=== PATIENT | male | born 1985 | race Caucasian/White ===

== ENCOUNTER 2016-06-13 20:09 | Emergency (ER) | payer BC ==
[2016-06-13] MEDS ORDERED: Clindamycin HCl 150 MG Cap PO ONE (20:24)
--- NOTE | 2016-06-13 20:28 | EDM.PDOC ---
ED HPI GENERAL MEDICAL PROBLEM - General Stated Complaint: SORE THROAT Time Seen by Provider: 06/13/16 20:25 Source of Information: Reports: Patient - History of Present Illness INITIAL COMMENTS - FREE TEXT/NARRATIVE: HISTORY AND PHYSICAL: History of present illness: [] Patient has had persistent sore throat since mid, he has been on around amoxicillin for 10 days with resolution 3 days post antibiotic sore throat began again, he then was seen in walk-in clinic are [facility] for 10 days, he completed this course on Tuesday he now has sore throat began moderate erythema no exudates tonsils 3+. No hot potato voice no difficulty eating, no drooling No fever nausea vomiting chills sweats Review of systems: As per history of present illness and below otherwise all systems reviewed and negative. Past medical history: As per history of present illness and as reviewed below otherwise noncontributory. Surgical history: As per history of present illness and as reviewed below otherwise noncontributory. Social history: No reported history of drug or alcohol abuse. Family history: As per history of present illness and as reviewed below otherwise noncontributory. Physical exam: HEENT: Atraumatic, normocephalic, pupils reactive, negative for conjunctival pallor or scleral icterus, mucous membranes moist, throat clear, neck supple, nontender, trachea midline. Uttered erythema of oropharynx no exudates tonsils 3 + Lungs: Clear to auscultation, breath sounds equal bilaterally, chest nontender. Heart: S1S2, regular, negative for clicks, rubs, or JVD. Abdomen: Soft, nondistended, nontender. Negative for masses or hepatosplenomegaly. Negative for costovertebral tenderness. Pelvis: Stable nontender. Genitourinary: Deferred. Rectal: Deferred. Extremities: Atraumatic, negative for cords or calf pain. Neurovascular unremarkable. Neuro: Awake, alert, oriented. Cranial nerves II through XII unremarkable. Cerebellum unremarkable. Motor and sensory unremarkable throughout. Exam nonfocal. Diagnostics: [] Previously cultured strep through the walk-in clinic Therapeutics: [] S. in 150 mg by mouth now Cleocin 300 mg by mouth 3 times a day #30 no refill Followup with ENT if symptoms persist or worsen despite treatment Impression: [] Tonsillitis Definitive disposition and diagnosis as appropriate pending reevaluation and review of above. ED ROS GENERAL - Review of Systems Review Of Systems: ROS reveals no pertinent complaints other than HPI. ED EXAM, GENERAL - Physical Exam Exam: See Below Course - Orders/Labs/Meds Orders: Active Orders 24 hr Category Date Time Status Clindamycin HCl [Cleocin] Med 06/13/16 20:24 Once 150 mg PO ONETIME ONE Departure - Departure Time of Disposition: 20:27 Disposition: Home, Self-Care 01 Condition: good Clinical Impression: Acute pharyngitis Additional Instructions: Medication as prescribed Return if symptoms persist or worsen despite treatment Followup with ENT if there is not complete resolution of symptoms [facility] - [facility] [address] [place] [id number] The following information is given to patients seen in the emergency department who are being discharged to home. This information is to outline your options for follow-up care. We provide all patients seen in our emergency department with a follow-up referral. The need for follow-up, as well as the timing and circumstances, are variable depending upon the specifics of your emergency department visit. If you don't have a primary care physician on staff, we will provide you with a referral. We always advise you to contact your personal physician following an emergency department visit to inform them of the circumstance of the visit and for follow-up with them and/or the need for any referrals to a consulting specialist. The emergency department will also refer you to a specialist when appropriate. This referral assures that you have the opportunity for follow-up care with a specialist. All of these measure are taken in an effort to provide you with optimal care, which includes your follow-up. Under all circumstances we always encourage you to contact your private physician who remains a resource for coordinating your care. When calling for follow-up care, please make the office aware that this follow-up is from your recent emergency room visit. If for any reason you are refused follow-up, please contact the [facility] emergency department at and asked to speak to the emergency department charge nurse. - My Orders Last 24 Hours: My Active Orders 06/13/16 20:24 Clindamycin HCl [Cleocin] 150 mg PO ONETIME ONE - Assessment/Plan Last 24 Hours: My Active Orders 06/13/16 20:24 Clindamycin HCl [Cleocin] 150 mg PO ONETIME ONE
[2016-06-13 21:08] VITALS: BP 121/63
== END 2016-06-13 21:03 | disposition home or self-care (01) ==
LOC: MW.ED 20:09
DX: J02.9 Acute pharyngitis, unspecified (principal)
CPT/HCPCS: 99283; A9270

== ENCOUNTER → 2016-06-28 | Outpatient (CLI) | payer BC | END | disposition home or self-care (01) | LOC: MW.CHENT 13:47 | PROVIDERS: ATTEND Otolaryngology | DX: J02.9 Acute pharyngitis, unspecified (principal) | CPT/HCPCS: 36415; 86060 ==

== ENCOUNTER 2021-01-22 20:12 | Emergency (ER) | payer BC, OTHER ==
[2021-01-22 22:37] VITALS: BP 128/83; PULSE 67
--- NOTE | 2021-01-22 23:22 | EDM.PDOC ---
ED HPI GENERAL MEDICAL PROBLEM - General Chief Complaint: Lower Extremity Injury/Pain Stated Complaint: LEFT LEG INJURY ON THE JOB Time Seen by Provider: 01/22/21 23:09 Source of Information: Reports: Patient History Limitations: Reports: No Limitations - History of Present Illness INITIAL COMMENTS - FREE TEXT/NARRATIVE: HISTORY AND PHYSICAL: History of present illness: Patient is a 35-year-old male who presents emergency room today with concern of left knee injury that states he occurred on 09 January. Patient states that he was hit in the knee on the job site by a piece of equipment. Patient states that since then, his work has not allowed him to come and get the knee evaluated. Patient states that he has continued to have pain and discomfort of the left knee and still has some residual bruising. Patient states he has been able to walk on it but does walk with a limp. Patient denies any head injury or loss of consciousness or any other resuscitative symptoms. Patient denies fever, chills, chest pain, shortness of breath, or cough. Denies headache, neck stiff ness, change in vision, syncope, or near syncope. Denies nausea, vomiting, abdominal pain, diarrhea, constipation, or dysuria. Has not noted any blood in urine or stool. Patient has been eating and drinking appropriately. Review of systems: As per history of present illness and below otherwise all systems reviewed and negative. Past medical history: As per history of present illness and as reviewed below otherwise noncontributory. Surgical history: As per history of present illness and as reviewed below otherwise noncontributory. Social history: See social history for further information Family history: As per history of present illness and as reviewed below otherwise noncontribu tory. Physical exam: General: Patient is alert, oriented, and in no acute distress. Patient sitting comfortably on exam table. Vitals stable and reviewed by me HEENT: Atraumatic, normocephalic, pupils equal and reactive bilaterally, negative for conjunctival pallor or scleral icterus, neck supple, nontender, trachea midline. No drooling or trismus noted. No meningeal signs. No hot potato voice noted. Lungs: Clear to auscultation, breath sounds equal bilaterally, chest nontender. Heart: S1S2, regular rate and rhythm without overt murmur Abdomen: Soft, nondistended, nontender. Negative for masses or hepatosplenomegaly. Negative for costovertebral tenderness. Pelvis: Stable nontender. Genitourinary: Deferred. Rectal: Deferred. Skin: Intact, warm, dry. No lesions or rashes noted. Extremities: Patient does have some mild ecchymosis noted of the mid calf area of the LLE without swelling or erythema. Patient does have pain to palpation of the proximal tibial area without crepitus. Patient does have full range of motion of the complete left lower extremity but states that he does have pain with range of motion of his left knee. All compartments are soft of the left lower extremity. Dorsalis pedis and posterior tibial pulses are grossly intact to left lower extremity with capillary refill less than 2 seconds. Otherwise, atraumatic, negative for cords or calf pain. Neurovascular unremarkable. Neuro: Awake, alert, oriented. Cranial nerves II through XII unremarkable. Cerebellum unremarkable. Motor and sensory unremarkable throughout. Exam nonfocal. Notes: Signs and symptoms that would prompt return to the ED thoroughly discussed with patient. Discussed importance for follow-up with a primary care provider. Voices understanding and is agreeable to plan of care. Denies any further questions or concerns at this time. Diagnostics: Knee x-ray, left Therapeutics: None Prescription: None Impression: Left knee injury Plan: 1. Rest, ice, elevate the affected extremity. You can apply ice 15 minutes on, 15 minutes off. 2. Tylenol and/or Ibuprofen as directed for pain management or discomfort. 3. Follow up with the primary care provider as discussed. Return to the ED as needed and as discussed. Definitive disposition and diagnosis as appropriate pending reevaluation and review of above. - Related Data Allergies Allergy/AdvReac Type Severity Reaction Status Date / Time No Known Allergies Allergy Verified 01/22/21 22:13 Home Meds: Home Meds . [No Known Home Meds] 06/13/16 [History] Past Medical History - Past Health History Medical/Surgical History: Denies Medical/Surgical History Respiratory History: Reports: Other (See Below) Other Respiratory History: treated for Strep infection twice - Infectious Disease History Infectious Disease History: Reports: Chicken Pox Social & Family History - Family History Family Medical History: No Pertinent Family History - Tobacco Use Tobacco Use Status *Q: Never Tobacco User - Caffeine Use Caffeine Use: Reports: Coffee, Energy Drinks, Soda, Tea Caffeine Use Comment: 1cup of coffee/day; 2-3drinks of pop and/or energy drinks/day - Alcohol Use Days Per Week of Alcohol Use: 2 Number of Drinks Per Day: 2 Total Drinks Per Week: 4 - Recreational Drug Use Recreational Drug Use: No Review of Systems - Review of Systems Review Of Systems: Comprehensive ROS is negative, except as noted in HPI. ED EXAM, GENERAL - Physical Exam Exam: See Below (see dictation) Course - Vital Signs Last Recorded V/S: Last Vital Signs Temp 97.9 F 01/22/21 22:02 Pulse 67 01/22/21 22:34 Resp 17 01/22/21 22:34 BP 128/83 01/22/21 22:34 Pulse Ox 100 01/22/21 22:34 Departure - Departure Time of Disposition: 10:06 Disposition: Home, Self-Care 01 Clinical Impression: Left knee injury - Discharge Information Referrals: PCP,None [Primary Care Provider] - Forms: ED Department Discharge Additional Instructions: The following information is given to patients seen in the emergency department who are being discharged to home. This information is to outline your options for follow-up care. We provide all patients seen in our emergency department with a follow-up referral. The need for follow-up, as well as the timing and circumstances, are variable depending upon the specifics of your emergency department visit. If you don't have a primary care physician on staff, we will provide you with a referral. We always advise you to contact your personal physician following an emergency department visit to inform them of the circumstance of the visit and for follow-up with them and/or the need for any referrals to a consulting specialist. The emergency department will also refer you to a specialist when appropriate. This referral assures that you have the opportunity for follow-up care with a specialist. All of these measure are taken in an effort to provide you with optimal care, which includes your follow-up. Under all circumstances we always encourage you to contact your private physician who remains a resource for coordinating your care. When calling for follow-up care, please make the office aware that this follow-up is from your recent emergency room visit. If for any reason you are refused follow-up, please contact the [facility] Emergency Department at and asked to speak to the emergency department charge nurse. [facility] [address] [place] [address] [facility] [address] [place] [address] 1. Rest, ice, elevate the affected extremity. You can apply ice 15 minutes on, 15 minutes off. 2. Tylenol and/or Ibuprofen as directed for pain management or discomfort. 3. Follow up with the primary care provider as discussed. Return to the ED as needed and as discussed. Sepsis Event Note (ED) - Evaluation Sepsis Screening Result: No Definite Risk
--- NOTE | 2021-01-23 00:08 | CR ---
Indication: Medial knee pain, injury at work. TECHNIQUE: X-ray left knee, 3 views. COMPARISON: None available. FINDINGS: The alignment is normal. Negative for acute fracture or dislocation. The joint spaces are preserved. The overlying soft tissues within normal limits. No knee joint effusion is seen. IMPRESSION: Unremarkable radiographs of the left knee. Dictated by Ryanne Maurer MD @ 01/23/2021 12:07:06 AM (Electronically Signed)
== END 2021-01-22 23:50 | disposition home or self-care (01) ==
LOC: MW.ED 20:12
DX: S89.92XA Unspecified injury of left lower leg, initial encounter (principal); W22.8XXA Striking against or struck by other objects, initial encounter; Y92.89 Other specified places as the place of occurrence of the external cause; Y99.0 Civilian activity done for income or pay
CPT/HCPCS: 73562-26-LT; 73562-LT; 99283-25